=== PATIENT | male | born 1970 | race Caucasian/White ===

== ENCOUNTER 2018-06-05 04:39 | Emergency (ER) | payer SELFPAY ==
--- NOTE | 2018-06-05 06:33 | ER Document Report ---
ED Eye Complaint - General Chief Complaint: Eye Injury Stated Complaint: EYE PAIN Time Seen by Provider: 06/05/18 04:48 Mode of Arrival: Ambulatory Information source: Patient, Friend Notes: Patient is a 48-year-old male comes emergency room holding his right eye. Patient states that he woke up out of sleep with feeling like something had fallen or gotten into his eye. Patient is refusing to remove his hand his pain is intense. He denies knowing any traumatic incident before he went to bed. TRAVEL OUTSIDE OF THE [place] IN LAST 30 DAYS: No - HPI Onset: Just prior to arrival Eye location: Right Occurred at: Home Quality of pain: Achy Severity: Severe Pain Level: 5 Safety glasses worn: No Contact lenses worn: No Associated symptoms: Pain, Photophobia, Redness - Related Data Allergies/Adverse Reactions: No Known Allergies Allergy (Verified 06/05/18 05:51) Past Medical History - General Information source: Patient - Social History Smoking Status: Never Smoker Cigarette use (# per day): No Chew tobacco use (# tins/day): No Smoking Education Provided: No Frequency of alcohol use: None Drug Abuse: None Lives with: Family Family History: Reviewed & Not Pertinent Patient has suicidal ideation: No Patient has homicidal ideation: No Renal/ Medical History: Denies: Hx Peritoneal Dialysis Review of Systems - Review of Systems Constitutional: No symptoms reported EENT: Eye pain, Blurred vision, Tearing Cardiovascular: No symptoms reported Respiratory: No symptoms reported Gastrointestinal: No symptoms reported Genitourinary: No symptoms reported Male Genitourinary: No symptoms reported Musculoskeletal: No symptoms reported Skin: No symptoms reported Hematologic/Lymphatic: No symptoms reported Neurological/Psychological: No symptoms reported -: Yes All other systems reviewed and negative Physical Exam - Vital signs Vitals: Temp Pulse Resp BP Pulse Ox 97.8 F 59 L 20 147/89 H 98 06/05/18 04:44 06/05/18 04:44 06/05/18 04:44 06/05/18 04:44 06/05/18 04:44 Interpretation: Hypertensive - Notes Notes: Well-nourished well-developed 48-year-old male in moderate distress and discomfort on examination. - General General appearance: Alert, Anxious - HEENT Head: Normocephalic, Atraumatic Eyes: Pale conjunctiva, Tears Conjunctiva: Icteric, Injected Cornea: Corneal abrasion, Flourescein stain uptake, Other - Examination of patient's right eye after before she is staying shows the cornea to be highly braced. It looks as though someone her fingernails and scratched it multiple different ways. I also did a slit lamp on patient as well looking and more in- depth my could not find any foreign bodies either under the lid or embedded in the eye itself. We are unable to do visual acuity because patient is teary so badly.. No: Embedded foreign body Extraocular movements intact: Yes Eyelashes: Normal Pupils: PERRL - Respiratory Respiratory status: No respiratory distress Chest status: Nontender Breath sounds: Normal. No: Rales, Rhonchi, Stridor, Wheezing Chest palpation: Normal - Cardiovascular Rhythm: Regular Heart sounds: Normal auscultation Murmur: No - Abdominal Inspection: Normal Distension: No distension - Neurological Neuro grossly intact: Yes Orientation: AAOx4 [place] Coma Scale Eye Opening: Spontaneous [place] Coma Scale Verbal: Oriented [place] Coma Scale Motor: Obeys Commands [place] Coma Scale Total: 15 Speech: Normal Course - Re-evaluation Re-evalutation: 06/05/18 07:09 After stated patient's I and after doing the slit-lamp procedure we used a Amandeep's lens and we flushed a liter of fluid through the area. We took that out approximately 30 minutes ago and had patient sitting there. Going back into reexamination of the eye he has a wide open now is not complaining of a severe pain just a little irritation at this point I would say that whatever was there is gone. I was going to call the meat team lead sales operations coordinator Dr. Sparks but at this point the patient feeling so good I will send him home with some ointment for the eye and if he is still painful tomorrow we will have him call the meat team lead and see if they can work him in. Patient is in total agreement with this plan. - Vital Signs Vital signs: Temp Pulse Resp BP Pulse Ox 97.8 F 59 L 20 147/89 H 98 06/05/18 04:44 06/05/18 04:44 06/05/18 04:44 06/05/18 04:44 06/05/18 04:44 Discharge - Discharge Clinical Impression: Corneal abrasion, right Qualifiers: Encounter type: initial encounter Qualified Code(s): S05.01XA - Injury of conjunctiva and corneal abrasion without foreign body, right eye, initial encounter Condition: Stable Disposition: HOME, SELF-CARE Instructions: Corneal Abrasion ([facility]) Additional Instructions: As we discussed this point you may return home. Use dark sunglasses when you are outside. Highly suggest going straight to the house and into a darkened room. Apply the ointment that we give you in the emergency room about every 4- 6 hours throughout the day to the next 7 days. If after 48 hours you are still experiencing any pain or discomfort contact the meat team lead I have given you on your discharge papers. You may also come to ER for recheck if necessary. Prescriptions: Hydrocodone/Acetaminophen [[place] 7.5-325 mg Tablet] 1 tab PO Q4 PRN #6 tablet PRN Reason: Forms: Elevated Blood Pressure Referrals: REECE SPARKS DO [ACTIVE STAFF] - Follow up as needed
[2018-06-05] MEDS ORDERED: GENTAMICIN SULFATE 0.3% OPH OINT 3.5 GM OD ONE (07:10)
[2018-06-05 07:40] VITALS: BP 130/89
== END 2018-06-05 07:42 | disposition home or self-care (01) ==
LOC: ER 04:39
DX: S05.01XA Injury of conjunctiva and corneal abrasion without foreign body, right eye, initial encounter (principal); X58.XXXA Exposure to other specified factors, initial encounter
CPT/HCPCS: 99283; J3490